=== PATIENT | male | born 1995 | race African-American/Black ===

== ENCOUNTER 2019-08-03 19:59 | Emergency (ER) | payer SELFPAY ==
[~2019-08-03] VITALS: Ht 182.9 cm; Wt 79.0 kg
[2019-08-03] MEDS ORDERED: IBUPROFEN 600MG TABLET PO ONE (23:00)
[2019-08-04 01:23] VITALS: BP 125/75
== END 2019-08-04 01:26 | disposition home or self-care (01) ==
LOC: ER 21:29
DX: S93.401A Sprain of unspecified ligament of right ankle, initial encounter (principal); V49.49XA Driver injured in collision with other motor vehicles in traffic accident, initial encounter; Y93.89 Activity, other specified; Y92.89 Other specified places as the place of occurrence of the external cause; Y99.8 Other external cause status
CPT/HCPCS: 71045; 72040; 73110; 73610; 74176; 99284